=== PATIENT | male | born 2005 | race Two or more races ===

== ENCOUNTER 2023-12-13 19:58 | Emergency (ER) | payer SELFPAY ==
[2023-12-13] MEDS: Cephalexin 500 MG Cap PO STA (20:45)
[2023-12-13] MEDS: Diphtheria,Pertussis(Acell),Tetanus Vaccine 0.5 ML Syringe IM ONE (20:45)
== END 2023-12-13 21:18 | disposition home or self-care (01) ==
LOC: MW.ED 19:58
DX: S62.630A Displaced fracture of distal phalanx of right index finger, initial encounter for closed fracture (principal); S61.210A Laceration without foreign body of right index finger without damage to nail, initial encounter; Z23 Encounter for immunization; W26.8XXA Contact with other sharp object(s), not elsewhere classified, initial encounter
CPT/HCPCS: 73140; 90471; 90715; 99283; A9270

== ENCOUNTER 2023-12-17 19:47 | Emergency (ER) | payer SELFPAY ==
[2023-12-17 21:09] LABS: BASOPHILS ABSOLUTE AUTO 0.05 K/uL (0.00-0.20); BASOPHILS PERCENT AUTO 0.5 % (0.0-1.0); EOSINOPHILS ABSOLUTE AUTO 0.24 K/uL (0.00-0.45); EOSINOPHILS PERCENT AUTO 2.6 % (0.0-6.0); HEMATOCRIT 43.9 % (42.0-52.0); HEMOGLOBIN 15.3 g/dL (14.0-18.0); IMMATURE GRAN ABSOLUTE AUTO 0.01 K/uL (0.00-0.05); IMMATURE GRAN PERCENT AUTO 0.1 % (0.0-0.4); LYMPHOCYTES ABSOLUTE AUTO 2.79 K/uL (1.00-4.80); LYMPHOCYTES PERCENT AUTO 29.8 % (24.0-44.0); MEAN CORPUSCULAR HGB CONC 34.9 g/dL (32.0-36.0); MEAN CORPUSCULAR VOLUME 86.1 fL (83.0-99.0); MEAN PLATELET VOLUME 10.9 fL (9.4-12.4); MONOCYTES ABSOLUTE AUTO 0.79 K/uL (0.00-0.80); MONOCYTES PERCENT AUTO 8.4 % (0.0-8.0); NEUTROPHILS ABSOLUTE AUTO 5.48 K/uL (1.80-7.70); NEUTROPHILS PERCENT AUTO 58.6 % (41.0-71.0); PLATELET COUNT,PLT 356 K/uL (150-400); WHITE BLOOD CELL COUNT,WBC 9.36 K/uL (3.9-11.3)
[2023-12-17 21:21] LABS: INR 1.04 (0.86-1.11)
[2023-12-17 21:40] LABS: ALBUMIN 3.9 g/dL (3.4-5.0); BILIRUBIN TOTAL 0.3 mg/dL (0.2-1.0); CALCIUM 9.4 mg/dL (8.5-10.1); CARBON DIOXIDE,CO2 25.6 mmol/L (21.0-32.0); CREATININE 0.9 mg/dL (0.8-1.3); EST CRCL DRUG DOSING (CG) 126.67 mL/min; POTASSIUM,K 3.9 mmol/L (3.5-5.1); PROTEIN TOTAL,TP 7.8 g/dL (6.4-8.2)
== END 2023-12-17 22:26 | disposition left against medical advice (07) ==
LOC: MW.ED 19:47
DX: Z53.21 Procedure and treatment not carried out due to patient leaving prior to being seen by health care provider (principal)
CPT/HCPCS: 36415; 71045; 71045-26; 80053; 83690; 84484; 85025; 85610

== ENCOUNTER 2023-12-18 09:23 | Emergency (ER) | payer MEDICAID ==
[2023-12-18] MEDS ORDERED: Sodium Chloride 0.9% 10 ML Syringe FLUSH PRN (09:35)
[2023-12-18] MEDS ORDERED: Sodium Chloride 0.9% 2.5 ML Syringe FLUSH PRN (09:35)
== END 2023-12-18 10:46 | disposition home or self-care (01) ==
LOC: MW.ED 09:23
DX: R07.9 Chest pain, unspecified (principal); R05.8 Other specified cough
CPT/HCPCS: 71046; 71046-26; 99282; 99285

== ENCOUNTER 2023-12-19 18:31 | Emergency (ER) | payer SELFPAY ==
[2023-12-19 19:20] LABS: BASOPHILS ABSOLUTE AUTO 0.01 K/uL (0.00-0.20); BASOPHILS PERCENT AUTO 0.1 % (0.0-1.0); EOSINOPHILS ABSOLUTE AUTO 0.03 K/uL (0.00-0.45); EOSINOPHILS PERCENT AUTO 0.4 % (0.0-6.0); HEMATOCRIT 46.2 % (42.0-52.0); IMMATURE GRAN ABSOLUTE AUTO 0.01 K/uL (0.00-0.05); IMMATURE GRAN PERCENT AUTO 0.1 % (0.0-0.4); LYMPHOCYTES PERCENT AUTO 8.9 % (24.0-44.0); MEAN CORPUSCULAR HEMOGLOBIN 30.3 pg (28.0-32.0); MEAN CORPUSCULAR HGB CONC 34.6 g/dL (32.0-36.0); MEAN CORPUSCULAR VOLUME 87.5 fL (83.0-99.0); MEAN PLATELET VOLUME 10.4 fL (9.4-12.4); MONOCYTES ABSOLUTE AUTO 0.52 K/uL (0.00-0.80); MONOCYTES PERCENT AUTO 6.6 % (0.0-8.0); NEUTROPHILS PERCENT AUTO 83.9 % (41.0-71.0); PLATELET COUNT,PLT 270 K/uL (150-400); RED BLOOD CELL COUNT 5.28 M/uL (4.52-5.90); WHITE BLOOD CELL COUNT,WBC 7.87 K/uL (3.9-11.3)
[2023-12-19 19:23] LABS: CORONAVIRUS COVID-19 NAA NEGATIVE (NEGATIVE); INFLUENZA A NAA NEGATIVE (NEGATIVE); INFLUENZA B NAA NEGATIVE (NEGATIVE); RESPIRATORY SYNCYTIAL VIR NAA NEGATIVE (NEGATIVE)
[2023-12-19] MEDS: Sodium Chloride 0.9% 2.5 ML Syringe FLUSH PRN (19:29)
[2023-12-19] MEDS: Sodium Chloride 0.9% 10 ML Syringe FLUSH PRN (19:29)
[2023-12-19] MEDS: Sodium Chloride 0.9% 1,000 ML IV STA (19:30)
[2023-12-19] MEDS: Ondansetron 4 MG/2 ML SDV IVPUSH STA ×2 (19:39→20:15)
[2023-12-19] MEDS: Ketorolac 30 MG/ML SDV IVPUSH STA (19:39)
[2023-12-19 19:42] LABS: INR 1.15 (0.86-1.11)
[2023-12-19 19:44] LABS: A/G RATIO 1.1 (0.9-1.6); ALBUMIN 3.9 g/dL (3.4-5.0); BILIRUBIN TOTAL 0.6 mg/dL (0.2-1.0); CALCIUM 8.9 mg/dL (8.5-10.1); CARBON DIOXIDE,CO2 26.7 mmol/L (21.0-32.0); PROTEIN TOTAL,TP 7.4 g/dL (6.4-8.2)
[2023-12-19 19:48] LABS: MAGNESIUM 1.9 mg/dL (1.8-2.4)
[2023-12-19] MEDS ORDERED: Naloxone 0.4 MG/ML SDV IVPUSH PRN (20:09)
[2023-12-19] MEDS: Morphine 4 MG/ML Syringe IVPUSH STA (20:15)
[2023-12-19] MEDS: Iopamidol 755 MG/ML 500 ML Multipack Bottle IVPUSH ONE (20:35)
[2023-12-19 21:35] LABS: APPEARANCE,URINE CLEAR; BILIRUBIN,URINE NEGATIVE (NEGATIVE); COLOR,URINE YELLOW; GLUCOSE,URINE NEGATIVE (NEGATIVE); KETONES,URINE NEGATIVE (NEGATIVE); LEUKOCYTE ESTERASE,URINE NEGATIVE (NEGATIVE); NITRITE,URINE NEGATIVE (NEGATIVE); OCCULT BLOOD,URINE TRACE-INTACT (NEGATIVE); PROTEIN,URINE NEGATIVE (NEGATIVE)
[2023-12-19 21:57] LABS: BACTERIA,URINE RARE (NEGATIVE); EPITHELIAL CELLS,URINE RARE (NONE-FEW); WBC,URINE 0-2 (0-5/HPF)
== END 2023-12-19 22:54 | disposition home or self-care (01) ==
LOC: MW.ED 18:31
DX: R55 Syncope and collapse (principal); R07.9 Chest pain, unspecified; A08.4 Viral intestinal infection, unspecified
CPT/HCPCS: 0241U; 36415; 70450; 71046; 71275; 80053; 81001; 82550; 83690; 83735; 84484; 85025; 85379; 85610; 96361; 96374; 96375; 99285; J1885; J2270; J2405; J3490; J7030; Q9967; 93010; 99284

== ENCOUNTER 2023-12-22 00:52 | Emergency (ER) | payer SELFPAY ==
[2023-12-22 01:41] LABS: BASOPHILS ABSOLUTE AUTO 0.04 K/uL (0.00-0.20); BASOPHILS PERCENT AUTO 0.5 % (0.0-1.0); EOSINOPHILS ABSOLUTE AUTO 0.08 K/uL (0.00-0.45); EOSINOPHILS PERCENT AUTO 1.1 % (0.0-6.0); HEMATOCRIT 47.9 % (42.0-52.0); HEMOGLOBIN 16.7 g/dL (14.0-18.0); IMMATURE GRAN ABSOLUTE AUTO 0.01 K/uL (0.00-0.05); IMMATURE GRAN PERCENT AUTO 0.1 % (0.0-0.4); LYMPHOCYTES ABSOLUTE AUTO 1.65 K/uL (1.00-4.80); LYMPHOCYTES PERCENT AUTO 22.5 % (24.0-44.0); MEAN CORPUSCULAR HEMOGLOBIN 29.8 pg (28.0-32.0); MEAN CORPUSCULAR HGB CONC 34.9 g/dL (32.0-36.0); MEAN CORPUSCULAR VOLUME 85.5 fL (83.0-99.0); MEAN PLATELET VOLUME 10.7 fL (9.4-12.4); MONOCYTES ABSOLUTE AUTO 0.62 K/uL (0.00-0.80); MONOCYTES PERCENT AUTO 8.5 % (0.0-8.0); NEUTROPHILS ABSOLUTE AUTO 4.92 K/uL (1.80-7.70); NEUTROPHILS PERCENT AUTO 67.3 % (41.0-71.0); PLATELET COUNT,PLT 304 K/uL (150-400); WHITE BLOOD CELL COUNT,WBC 7.32 K/uL (3.9-11.3)
[2023-12-22] MEDS: Famotidine 20 MG Tab PO ONE (01:49)
[2023-12-22] MEDS: Sodium Chloride 0.9% 1,000 ML IV ONE (01:49)
[2023-12-22] MEDS: Sodium Chloride 0.9% 2.5 ML Syringe FLUSH PRN (01:49)
[2023-12-22] MEDS: Sodium Chloride 0.9% 10 ML Syringe FLUSH PRN (01:49)
[2023-12-22 01:54] LABS: INR 1.14 (0.86-1.11)
[2023-12-22 02:04] LABS: A/G RATIO 0.9 (0.9-1.6); BILIRUBIN TOTAL 0.6 mg/dL (0.2-1.0); CALCIUM 9.4 mg/dL (8.5-10.1); CARBON DIOXIDE,CO2 21.7 mmol/L (21.0-32.0); CREATININE 1.1 mg/dL (0.8-1.3); EST CRCL DRUG DOSING (CG) 103.64 mL/min; POTASSIUM,K 3.8 mmol/L (3.5-5.1); PROTEIN TOTAL,TP 8.3 g/dL (6.4-8.2)
[2023-12-22] MEDS: Iopamidol 755 MG/ML 500 ML Multipack Bottle IVPUSH ONE (02:09)
== END 2023-12-22 03:57 | disposition home or self-care (01) ==
LOC: MW.ED 00:52
DX: I88.0 Nonspecific mesenteric lymphadenitis (principal); K52.9 Noninfective gastroenteritis and colitis, unspecified
CPT/HCPCS: 36415; 74177; 80053; 83690; 85025; 85610; 87045; 87046; 87449; 87899; 96360; 99284; A9270; J3490; J7030; Q9967

== ENCOUNTER 2024-02-03 15:48 | Emergency (ER) | payer SELFPAY | END 2024-02-03 17:17 | disposition home or self-care (01) | LOC: MW.ED 15:48 | DX: S60.111A Contusion of right thumb with damage to nail, initial encounter (principal); W22.8XXA Striking against or struck by other objects, initial encounter; Y93.89 Activity, other specified; Z75.8 Other problems related to medical facilities and other health care | CPT/HCPCS: 73130-26-RT; 73130-RT; 99282; 99283 ==